=== PATIENT | male | born 1950 | race Two or more races ===

== ENCOUNTER 2016-11-23 10:30 | Emergency (ER) | payer MEDICARE, OTHER ==
[~2016-11-23] VITALS: Ht 180.3 cm; Wt 103.0 kg
[~2016-11-23 10:30] MED LIST: CIAL5TAB PO; ESCI10TA PO; HYDR12.57 PO; LOTR5CAP3 PO; MECL-62 PO; METF500T PO; ROSU20 PO
[2016-11-23 10:38] VITALS: BP 191/111; PULSE 68; RESP 18; TEMP 97.5; O2SAT 97
[2016-11-23] MEDS ORDERED: ORPHENADRINE INJ 60 MG/2 ML AMP IM ONE (11:30)
[2016-11-23] MEDS ORDERED: KETOROLAC TROMETHAMINE 60 MG/2 ML (IM) VIAL IM ONE (11:30)
[2016-11-23] MEDS ORDERED: PRED20 PO (11:54)
--- NOTE | 2016-11-23 11:55 | PD ---
HPI . Left shoulder pain Chief Complaint: Musculoskeletal Complaint Time Seen by Provider: 11:09 Travel History International Travel<30 days: No Contact w/Intl Traveler<30days: No Traveled to known affect area: No History of Present Illness HPI 66-year-old male patient presents emergency part of her evaluation of left shoulder pain that started on Saturday night. Patient denies any exacerbating activities or injury or trauma to the area. Patient states the pain is sharp and shooting. It starts in the left lateral aspect of his neck and radiates down his arm. Patient denies ever having this pain in the past. Patient denies any chest pain, shortness breath, nausea, vomiting, diarrhea, lightheadedness, fever, chills or malaise. Patient is unable to fully lift his left arm due to the pain. The left arm is neurovascularly intact. There is no focal neurological deficit. PFSH Past Medical History Anxiety: Yes Heart Rhythm Problems: No Cancer: No Cardiovascular Problems: Yes High Cholesterol: Yes Chest Pain: Yes Congestive Heart Failure: No Diabetes: Yes Diminished Hearing: Yes (hearing aids) GERD: Yes Glaucoma: No Hepatitis: Yes (FOOD) Hiatal Hernia: No Hypertension: Yes Respiratory: No Thyroid Disease: No Past Surgical History Abdominal Surgery: Yes () Appendectomy: Yes (1972) Pacemaker: No Other Surgery: Yes (LEFT KNEE ORTHOSCOPY) Social History Alcohol Use: Yes (DAILY) Tobacco Use: Yes (QUIT Cigarettes LONG AGO, smokes occasional cigar) Substance Use: No Allergies-Medications (Allergen,Severity, Reaction): Coded Allergies: penicillin G (Unverified Allergy, Severe, DYSPNEA, HIVES, 11/23/16) Reported Meds & Prescriptions Reported Meds & Active Scripts Active Lotrel (Amlodipine-Benazepril) 5-20 Mg Cap 1 Cap PO DAILY Meclizine (Meclizine HCl) 25 Mg Tab 25 Mg PO DIRECTED PRN Reported Hydrochlorothiazide 12.5 Mg Cap 12.5 Mg PO DAILY Cialis (Tadalafil) 5 Mg Tab 5 Mg PO DAILY Do not exceed 1 dose/day. Escitalopram (Escitalopram Oxalate) 10 Mg Tab 10 Mg PO HS Crestor (Rosuvastatin Calcium) 20 Mg Tab 20 Mg PO DAILY Metformin (Metformin HCl) 500 Mg Tab 500 Mg PO DAILY With a meal Review of Systems Except as stated in HPI: all other systems reviewed are Neg Physical Exam Narrative GENERAL: Well-nourished, well-developed 66-year-old male patient in no acute distress. Nontoxic appearing SKIN: Focused skin assessment warm/dry. HEAD: Normocephalic. Atraumatic NEUROLOGICAL: Awake and alert. Cranial nerves II through XII intact. Motor and sensory grossly within normal limits. Normal speech. EYES: No scleral icterus. No injection or drainage. NECK: Supple, trachea midline. No JVD or lymphadenopathy. CARDIOVASCULAR: Regular rate and rhythm without murmurs, gallops, or rubs. Radial pulses +2 bilaterally RESPIRATORY: Breath sounds equal bilaterally. No accessory muscle use. GASTROINTESTINAL: Abdomen soft, non-tender, nondistended. MUSCULOSKELETAL: Left arm unable to fully extend overhead. Left upper extremity 3 out of 5 strength. No cyanosis, or edema. BACK: Nontender without obvious deformity. No neck stiffness. No CVA tenderness. Data Data Last Documented VS Vital Signs Date Time Temp Pulse Resp B/P (MAP) Pulse Ox O2 Delivery O2 Flow Rate FiO2 11/23/16 10:38 97.5 68 18 191/111 (137) 97 Orders Orders Ketorolac Inj (Toradol Inj) (11/23/16 11:30) Ice/Cold Pack (11/23/16 11:24) Orphenadrine Inj (Norflex Inj) (11/23/16 11:30) MDM Medical Decision Making Medical Screen Exam Complete: Yes Emergency Medical Condition: Yes Differential Diagnosis Differential diagnoses include but not limited to cervical radiculopathy, left shoulder pain, left shoulder contusion Narrative Course 66-year-old male patient presents emergency department for evaluation of left shoulder pain that started on Saturday. There is no injury or trauma to the site. There is no ecchymosis, deformities, erythema to the area. Patient's arm is neurovascularly intact. The pain originates on the left lateral aspect of the neck and radiates down his left arm with a sharp shooting sensation. Based on patient's symptoms, clinical presentation, vital sign review and physical exam it is not necessary to admit the patient to the hospital or keep the patient in the emergency department for further evaluation. Patient will be given an IM injection of Toradol, IM injection of Norflex, ice will be applied to the left shoulder and discharged home with a prescription for prednisone and instructions to follow-up with his primary care if symptoms persist. Diagnosis Primary Impression: Cervical radiculopathy Referrals: Primary Care Physician Patient Instructions: Cervical Radiculopathy (ED), General Instructions Additional Instructions: Please return to emergency department if your symptoms return or worsen. Follow up with your primary care provider. Take medications as prescribed. Med/Other Pt SpecificInfo: Prescription(s) given Scripts Prednisone (Prednisone) 20 Mg Tab 40 MG PO DAILY for 5 Days, #5 TAB 0 Refills Take 40 mg (2 tablets) daily for 5 days Prov: Ita Vasquez 11/23/16 Disposition: 01 DISCHARGE HOME Condition: Stable Ita Vasquez Nov 23, 2016 11:55
[2016-11-23 12:04] VITALS: BP 182/108
== END 2016-11-23 12:06 | disposition home or self-care (01) ==
LOC: PHEFT 10:30
DX: M54.12 Radiculopathy, cervical region (principal); E11.9 Type 2 diabetes mellitus without complications; I10 Essential (primary) hypertension
CPT/HCPCS: 96372; 99284; J1885; J2360

== ENCOUNTER 2017-03-06 08:39 | Emergency (ER) | payer MEDICARE, OTHER ==
[~2017-03-06] VITALS: Ht 179.1 cm; Wt 100.0 kg
[~2017-03-06 08:39] MED LIST changes: +PRED20 PO
[2017-03-06 08:52] VITALS: BP 161/101; PULSE 78; RESP 16; TEMP 97.9; O2SAT 96
[2017-03-06] MEDS ORDERED: BUPR100CR PO (09:12)
[2017-03-06] MEDS ORDERED: DENO60P SQ (09:13)
[2017-03-06] MEDS ORDERED: CALCTAB19 PO (09:13)
--- NOTE | 2017-03-06 09:29 | PD ---
HPI Chief Complaint: Injury Time Seen by Provider: 09:21 Travel History International Travel<30 days: No Contact w/Intl Traveler<30days: No Traveled to known affect area: No History of Present Illness HPI 66 years old male complains of right knee pain. Patient states that he twisted his right knee yesterday. Patient has history of right knee arthroscopic surgery in the past for meniscus injury. Patient has been doing well until yesterday. Patient states the pain is persistent sharp severe pain localized to right knee. Patient denies any pain radiation. Patient states that the pain is worse with movement of the right knee joint. Patient denies any other injury. On a scale of 1-10 the pain is a 10. PFSH Past Medical History Medical History: Denies Significant Hx Hx Anticoagulant Therapy: No Anxiety: Yes Heart Rhythm Problems: No Cancer: No Cardiovascular Problems: Yes (HTN, CHOL) High Cholesterol: Yes Chest Pain: Yes Congestive Heart Failure: No Diabetes: Yes Patient Takes Glucophage: Yes (METFORMIN) Diminished Hearing: Yes (hearing aids) GERD: Yes Glaucoma: No Hepatitis: Yes (FOOD) Hiatal Hernia: No Hypertension: Yes Medical other: Yes (TINNITIS/VERTIGO) Musculoskeletal: Yes (OSTEOPOROSIS) Neurologic: Yes (PERIPHERAL NEUROPATHY) Psychiatric: Yes (PTSD) Respiratory: No Immunizations Current: Yes Thyroid Disease: No Past Surgical History Abdominal Surgery: Yes (APPY) Appendectomy: Yes (1973) Eye Surgery: Yes (RETINAL BLEEDING LEFT EYE) Pacemaker: No Other Surgery: Yes (LEFT KNEE ORTHOSCOPY) Social History Alcohol Use: Yes (OCCASIONALLY, SOMETIMES DAILY) Tobacco Use: Yes (QUIT Cigarettes LONG AGO, smokes occasional cigar) Substance Use: No Allergies-Medications (Allergen,Severity, Reaction): Coded Allergies: penicillin G (Unverified Allergy, Severe, DYSPNEA, HIVES, 03/06/17) Reported Meds & Prescriptions Reported Meds & Active Scripts Active Cialis (Tadalafil) 5 Mg Tab 5 Mg PO DAILY Do not exceed 1 dose/day. Lotrel (Amlodipine-Benazepril) 5-20 Mg Cap 1 Cap PO DAILY Meclizine (Meclizine HCl) 25 Mg Tab 25 Mg PO DIRECTED PRN Reported Prolia Inj (Denosumab) 60 Mg/Ml Inj 60 Mg SQ Q180D Calcium 600+D 200 (Calcium Carbonate-Vitamin D) 600-200 Mg-Unit Tab 1 Tab PO WEDNESDAY Wellbutrin SR 12 HR (Bupropion HCl) 100 Mg Tab 100 Mg PO Q12HR Metformin (Metformin HCl) 500 Mg Tab 500 Mg PO DAILY With a meal Review of Systems General / Constitutional: No: Fever Eyes: No: Visual changes HENT: No: Headaches Cardiovascular: No: Chest Pain or Discomfort Respiratory: No: Shortness of Breath Gastrointestinal: No: Abdominal Pain Genitourinary: No: Dysuria Musculoskeletal: Positive: Pain Skin: No Rash Neurologic: No: Weakness Psychiatric: No: Depression Endocrine: No: Polydipsia Hematologic/Lymphatic: No: Easy Bruising Physical Exam Narrative GENERAL: Well-nourished, well-developed patient. SKIN: Focused skin assessment warm/dry. HEAD: Normocephalic. EYES: No scleral icterus. No injection or drainage. NECK: Supple, trachea midline. No JVD or lymphadenopathy. CARDIOVASCULAR: Regular rate and rhythm without murmurs, gallops, or rubs. RESPIRATORY: Breath sounds equal bilaterally. No accessory muscle use. GASTROINTESTINAL: Abdomen soft, non-tender, nondistended. MUSCULOSKELETAL: No cyanosis, or edema. BACK: Nontender without obvious deformity. No CVA tenderness. Patient has moderate tenderness diffuse over the right knee joint especially on the medial and lateral collateral ligament of the knee joint. Limited range of motion of the right knee secondary to pain. Knee joints stable. Data Data Last Documented VS Vital Signs Date Time Temp Pulse Resp B/P (MAP) Pulse Ox O2 Delivery O2 Flow Rate FiO2 03/06/17 08:52 97.9 78 16 161/101 (121) 96 Orders Orders Knee, Ltd (1 Or 2vws) (03/06/17 09:25) [facility] Medical Decision Making Medical Screen Exam Complete: Yes Emergency Medical Condition: Yes Differential Diagnosis Differential diagnosis including sprain, fracture, dislocation. Narrative Course 66 years old male right knee injury. Knee immobilizer and crutches given. Diagnosis Primary Impression: Injury of ligament of right knee Qualified Codes: S89.91XA - Unspecified injury of right lower leg, initial encounter Patient Instructions: General Instructions Additional Instructions: Take medication as needed for pain. Follow-up with an orthopedist. Med/Other Pt SpecificInfo: Prescription(s) given Scripts Acetaminophen-Codeine (Tylenol-Codeine #3) 300-30 mg Tab 1 TAB PO Q4H Y for PAIN, #20 TAB 0 Refills Prov: Ayden Mazariegos MD 03/06/17 Disposition: 01 DISCHARGE HOME Condition: Stable Ayden Mazariegos MD Mar 06, 2017 09:29
[2017-03-06] MEDS ORDERED: TYLETAB34 PO (09:47)
--- NOTE | 2017-03-06 09:54 | RADRPT ---
EXAM DATE/TIME: 03/06/2017 09:28 [facility] COMPARISON: No previous studies available for comparison. INDICATIONS : Right knee pain and swelling, tripped last night. MEDICAL HISTORY : rt knee meniscus tear SURGICAL HISTORY : arthroscopic sx right meniscus tear ENCOUNTER: Initial ACUITY: 2 days PAIN SCORE: 10/10 LOCATION: Right knee FINDINGS: Two view examination of the right knee demonstrates no evidence of fracture or dislocation. Mild/mode rate degenerative changes. Soft tissue swelling. No effusion. Calcification medial collateral ligamen t. CONCLUSION: 1. Osteoarthritis without fracture. 2. Calcification medial collateral ligament likely old injury. Shahram Dixon MD on March 06, 2017 at 9:51 Board Certified Radiologist. This report was verified electronically.
== END 2017-03-06 10:24 | disposition home or self-care (01) ==
LOC: PHED 08:39
DX: S89.91XA Unspecified injury of right lower leg, initial encounter (principal); E11.9 Type 2 diabetes mellitus without complications; E78.00 Pure hypercholesterolemia, unspecified; I10 Essential (primary) hypertension; M81.0 Age-related osteoporosis without current pathological fracture; Z88.0 Allergy status to penicillin; Z87.891 Personal history of nicotine dependence; X50.1XXA Overexertion from prolonged static or awkward postures, initial encounter; Y93.9 Activity, unspecified; Y92.9 Unspecified place or not applicable; Y99.9 Unspecified external cause status
CPT/HCPCS: 73560; 99283; E0113; L1830

== ENCOUNTER 2017-05-24 19:21 | Emergency (ER) | payer MEDICARE, OTHER ==
[~2017-05-24 19:21] MED LIST changes: +BUPR100CR PO; +CALCTAB19 PO; +DENO60P SQ; -ESCI10TA PO; -HYDR12.57 PO; -PRED20 PO; +TYLETAB34 PO
[2017-05-24 19:31] VITALS: BP 149/85; PULSE 72; RESP 20; TEMP 98.8; O2SAT 96
--- NOTE | 2017-05-24 19:49 | PD ---
HPI Chief Complaint: Injury Time Seen by Provider: 19:43 Travel History International Travel<30 days: No Contact w/Intl Traveler<30days: No Traveled to known affect area: No History of Present Illness HPI 66 years old male complains of right shoulder pain the right wrist pain. Patient states that he fell this evening. Patient denies loss of consciousness. Patient denies any headache or neck pain. Patient states that the pain localized to the right shoulder and right wrist. Patient denies any pain radiation. Patient states that the pain is worse with movement the right shoulder joint right wrist joint. On a scale from 1-10 the pain is a 9. PFSH Past Medical History Hx Anticoagulant Therapy: No Anxiety: Yes Heart Rhythm Problems: No Cancer: No Cardiovascular Problems: Yes (HTN, CHOL) High Cholesterol: Yes Chest Pain: Yes Congestive Heart Failure: No Diabetes: Yes Diminished Hearing: Yes (hearing aids) GERD: Yes Glaucoma: No Hepatitis: Yes (FOOD) Hiatal Hernia: No Hypertension: Yes Musculoskeletal: Yes (OSTEOPOROSIS) Neurologic: Yes (PERIPHERAL NEUROPATHY) Psychiatric: Yes (PTSD) Respiratory: No Immunizations Current: Yes Thyroid Disease: No Past Surgical History Abdominal Surgery: Yes (APP) Appendectomy: Yes (1973) Eye Surgery: Yes (RETINAL BLEEDING LEFT EYE) Pacemaker: No Other Surgery: Yes (LEFT KNEE ORTHOSCOPY) Social History Alcohol Use: Yes (OCCASIONALLY, SOMETIMES DAILY) Tobacco Use: Yes (QUIT Cigarettes LONG AGO, smokes occasional cigar) Substance Use: No Allergies-Medications (Allergen,Severity, Reaction): Coded Allergies: penicillin G (Unverified Allergy, Severe, DYSPNEA, HIVES, 05/24/17) Reported Meds & Prescriptions Reported Meds & Active Scripts Active Tylenol-Codeine #3 (Acetaminophen-Codeine) 300-30 mg Tab 1 Tab PO Q4H PRN Cialis (Tadalafil) 5 Mg Tab 5 Mg PO DAILY Do not exceed 1 dose/day. Lotrel (Amlodipine-Benazepril) 5-20 Mg Cap 1 Cap PO DAILY Meclizine (Meclizine HCl) 25 Mg Tab 25 Mg PO DIRECTED PRN Reported Calcium 500 +D (Calcium Carbonate-Cholecalciferol) 500-400 Mg-Unit Tab 1 Tab PO DAILY Prolia Inj (Denosumab) 60 Mg/Ml Inj 60 Mg SQ Q180D Calcium 600+D 200 (Calcium Carbonate-Vitamin D) 600-200 Mg-Unit Tab 1 Tab PO SATURDAY Wellbutrin SR 12 HR (Bupropion HCl) 100 Mg Tab 100 Mg PO DAILY Crestor (Rosuvastatin Calcium) 20 Mg Tab 20 Mg PO DAILY Metformin (Metformin HCl) 500 Mg Tab 500 Mg PO DAILY With a meal Review of Systems General / Constitutional: No: Fever Eyes: No: Visual changes HENT: No: Headaches Cardiovascular: No: Chest Pain or Discomfort Respiratory: No: Shortness of Breath Gastrointestinal: No: Abdominal Pain Genitourinary: No: Dysuria Musculoskeletal: Positive: Pain Skin: No Rash Neurologic: No: Weakness Psychiatric: No: Depression Endocrine: No: Polydipsia Hematologic/Lymphatic: No: Easy Bruising Physical Exam Narrative GENERAL: Well-nourished, well-developed patient. SKIN: Focused skin assessment warm/dry. HEAD: Normocephalic. EYES: No scleral icterus. No injection or drainage. NECK: Supple, trachea midline. No JVD or lymphadenopathy. CARDIOVASCULAR: Regular rate and rhythm without murmurs, gallops, or rubs. RESPIRATORY: Breath sounds equal bilaterally. No accessory muscle use. GASTROINTESTINAL: Abdomen soft, non-tender, nondistended. MUSCULOSKELETAL: No cyanosis, or edema. BACK: Nontender without obvious deformity. No CVA tenderness. Patient has moderate tenderness diffuse over the right shoulder joint. Limited range of motion of the right shoulder secondary to pain. Moderate tenderness in palpation of the right wrist joint. Mild soft tissue swelling noted. Full range of motion of the fingers. Sensory motor function distally intact. Data Data Last Documented VS Vital Signs Date Time Temp Pulse Resp B/P (MAP) Pulse Ox O2 Delivery O2 Flow Rate FiO2 05/24/17 20:08 71 20 05/24/17 20:08 140/80 (100) 95 05/24/17 19:31 98.8 Orders Orders Shoulder, Limited(2vws) (05/24/17 19:46) Wrist, Complete ([id number]) (05/24/17 19:46) Acetamin-Hydrocod 325-5 Mg ([place]hingleton 5-325 (05/24/17 20:30) Splint Or Brace Apply/Monitor (05/24/17 20:50) MDM Medical Decision Making Medical Screen Exam Complete: Yes Emergency Medical Condition: Yes Interpretation(s) X-ray right shoulder show fracture distal clavicle. X-ray right wrist shows no acute bony injury. Differential Diagnosis Differential diagnoses include contusion, sprain, fracture. Narrative Course 66 years old male with right shoulder and right wrist injury. Thumb spica splint. Sling applied. Diagnosis Primary Impression: Fracture of right clavicle Qualified Codes: S42.034A - Nondisplaced fracture of lateral end of right clavicle, initial encounter for closed fracture Additional Impression: Right wrist sprain Qualified Codes: S63.501A - Unspecified sprain of right wrist, initial encounter Patient Instructions: General Instructions Additional Instructions: Take medication as directed for pain. Ice pack. Follow-up with orthopedist. Med/Other Pt SpecificInfo: Prescription(s) given Scripts Acetaminophen-Codeine (Tylenol-Codeine #3) 300-30 mg Tab 1 TAB PO Q6H Y for PAIN, #20 TAB 0 Refills Prov: Ayden Mazariegos MD 05/24/17 Disposition: 01 DISCHARGE HOME Condition: Stable Ayden Mazariegos MD May 24, 2017 19:49
[2017-05-24] MEDS ORDERED: CALC1TAB12 PO (19:54)
[2017-05-24 20:08] VITALS: BP 140/80; PULSE 71; RESP 20; O2SAT 95
[2017-05-24] MEDS ORDERED: ACETAMINOPHEN/HYDROcodone 325 MG/5 MG TAB PO ONE (20:30)
--- NOTE | 2017-05-24 20:37 | RADRPT ---
EXAM DATE/TIME: 05/24/2017 20:02 [facility] COMPARISON: No previous studies available for comparison. INDICATIONS : Right shoulder pain post fall. MEDICAL HISTORY : Hypertension. Diabetes mellitus type II. Gastroesophageal reflux disease. Cardiovascular disease SURGICAL HISTORY : Appendectomy. Bilateral knee arthroscopy ENCOUNTER: Initial ACUITY: 1 day PAIN SCORE: 6/10 LOCATION: Right upper extremity FINDINGS: Two view examination of the right shoulder demonstrates no evidence of fracture or dislocation. The glenohumeral and acromioclavicular joints are maintained. Bony mineralization is normal. CONCLUSION: 1. No acute findings. Jhony Nicole MD on May 24, 2017 at 20:34 Board Certified Radiologist. This report was verified electronically.
--- NOTE | 2017-05-24 20:38 | RADRPT ---
EXAM DATE/TIME: 05/24/2017 20:02 [facility] COMPARISON: No previous studies available for comparison. INDICATIONS : Right wrist pain post fall. MEDICAL HISTORY : Hypertension. Diabetes mellitus type II. Gastroesophageal reflux disease. Cardiovascular disease SURGICAL HISTORY : Appendectomy. Bilateral knee arthroscopy ENCOUNTER: Initial ACUITY: 1 day PAIN SCORE: 8/10 LOCATION: Right upper extremity FINDINGS: Three view examination of the right wrist demonstrates no soft tissue swelling, dislocation, or fract ure. The carpal bones are in normal alignment. The joint spaces are maintained. Bony mineralizatio n is normal. CONCLUSION: Unremarkable examination of the right wrist. Jhony Nicole MD on May 24, 2017 at 20:35 Board Certified Radiologist. This report was verified electronically.
[2017-05-24] MEDS ORDERED: TYLETAB34 PO (20:56)
[2017-05-24 21:26] VITALS: BP 147/92
== END 2017-05-24 21:34 | disposition home or self-care (01) ==
LOC: PHED 19:21
DX: S42.034A Nondisplaced fracture of lateral end of right clavicle, initial encounter for closed fracture (principal); S63.501A Unspecified sprain of right wrist, initial encounter; W19.XXXA Unspecified fall, initial encounter; I10 Essential (primary) hypertension; E78.00 Pure hypercholesterolemia, unspecified; M81.0 Age-related osteoporosis without current pathological fracture; E11.42 Type 2 diabetes mellitus with diabetic polyneuropathy; Z79.84 Long term (current) use of oral hypoglycemic drugs; Z72.0 Tobacco use; Z88.0 Allergy status to penicillin; Z79.891 Long term (current) use of opiate analgesic
CPT/HCPCS: 73030; 73110; 99283; L3808; 29130